=== PATIENT | male | born 1945 | race Caucasian/White ===

== ENCOUNTER 2016-12-15 09:17 | Day surgery (SDC) | payer MEDICARE ==
--- NOTE | ~2016-12-15 | EGD ---
EGD REPORT [facility] [address] [place]. [id number] NAME: SONNY CORTEZ : [birth year] STATUS : REG [facility]#: [id number] AGE: 71 ADM/REG DATE : 12/15/16 MR#: [id number] REPORT SERV DATE: 12/15/16 DICTATED BY: CINDY MOLINA DATE: 12/15/16 REPORT STATUS : Draft TRANSCRIBED BY: [facility] DATE: 12/15/16 Pulmonology Patient Name: Sonny Cortez Procedure Date: 12/15/2016 11:10 AM Date of : 1945 Attending MD: MAURILIO MOLINA MD Procedure Date No Time: 12/15/2016 Procedure: EBUS/NAVIGATION BRONCHOSCOPY Indications: RUL persistent infiltrate, mediastinal adenopathy, remote history of smoking (8 pack years), DVT/PEs. Ddx: Malignancy versus Inflammatory lung disease Providers: MAURILIO MOLINA MD Referring MD: ROSALIO ACUÑA MD Medicines: Lidocaine 2% 20 mL Complications: No immediate complications Procedure: Pre-Anesthesia Assessment: - ASA Grade Assessment: III - A patient with severe systemic disease. - A History and Physical has been performed. Patient meds and allergies have been reviewed. The risks and benefits of the procedure and the sedation options and risks were discussed with the patient. All questions were answered and informed consent was obtained. Patient identification and proposed procedure were verified prior to the procedure by the physician and the nurse in the procedure room. Mental Status Examination: alert and oriented. Airway Examination: normal oropharyngeal airway. Respiratory Examination: clear to auscultation. CV Examination: normal and RRR, no murmurs, no S3 or S4. ASA Grade Assessment: III - A patient with severe systemic disease. After reviewing the risks and benefits, the patient was deemed in satisfactory condition to undergo the procedure. The anesthesia plan was to use general anesthesia. Immediately prior to administration of medications, the patient was re-assessed for adequacy to receive sedatives. The heart rate, respiratory rate, oxygen saturations, blood pressure, adequacy of pulmonary ventilation, and response to care were monitored throughout the procedure. The physical status of the patient was re-assessed after the procedure. After obtaining informed consent, the Bronchoscope was introduced through the mouth, via the endotracheal tube (the patient was intubated for the procedure) and advanced to the tracheobronchial tree. the BF [id number] was introduced through the and advanced to the. EGD REPORT [address] [address] NAME: SONNY CORTEZ : [birth year] STATUS : REG [facility]#: [id number] AGE: 71 ADM/REG DATE : 12/15/16 MR#: [id number] REPORT SERV DATE: 12/15/16 DICTATED BY: CINDY MOLINA DATE: 12/15/16 REPORT STATUS : Draft TRANSCRIBED BY: [email or web address] DATE: 12/15/16 The procedure was accomplished without difficulty. The patient tolerated the procedure well. Findings: The endotracheal tube is in good position. The visualized portion of the trachea is of normal caliber. The skyler is sharp. The tracheobronchial tree was examined to at least the first subsegmental level. Bronchial mucosa and anatomy are normal; there are no endobronchial lesions, and no secretions. EBUS TBNA of lymph node level 11L x 4passes for cytology EBUS TBNA of lymph node level 7 x 4 passes for cytology EBUS TBNA of lymph node level 4R x 8 passes for cytology EBUS TBNA of lymph node level 11R x 8 passes for cytology Using SuperDimension Edge catheter 180, peripheral probe EBUS 17s, and fluoroscopy, I performed the following biopsies: RUL lung infiltrate transbronchial needle aspirates x 6 passes for cytology RUL lung infiltrate transbronchial brush biopsy x 1 pass for cytology RUL lung infiltrate transbronchial forcep biopsies x 4 passes for histopathology Bronchoalveolar lavage was performed in the right upper lobe of the lung and sent for routine cytology. 60 mL of fluid were instilled. 10 mL were returned. The return was blood-tinged. Impression: Rapid On-Site Evaluation ([place]): Preliminary cytology is POSITIVE for NON-SMALL CELL LUNG CANCER (final results are pending). Recommendation: - Await test results. - PET scan. - MRI of the brain with and without contrast - Consult Medical Oncology - Consult Radiation Oncology - Full PFTs (if not already performed) - Restart Eliquis 6 hours - Dr. Zepeda is aware of the preliminary results - Follow up with Dr. Zepeda in clinic as previously scheduled. - Lung Cancer Nurse Navigator, Sona Carlson Attending Participation: I personally performed the entire procedure. MAURILIO MOLINA MD 12/15/2016 12:40 PM This report has been signed electronically. Number of Addenda: 0 Note Initiated On: 12/15/2016 11:10 AM
[~2016-12-15 09:17] MED LIST: ELIQUIS 5 MG TAB5 MG PO; RED YEAS1 PO; ZYRTEC ALLGY10 MG PO
[2016-12-15 09:44] LABS: BASOPHILS 0.4 %; BASOPHILS ABSOLUTE 0.04 10/3/uL (0.0-0.16); EOSINOPHILS 5.9 %; EOSINOPHILS ABSOLUTE 0.61 10/3/uL (0.0-0.53); HEMATOCRIT 43.1 % (40.0-51.0); HEMOGLOBIN 14.1 g/dL (13.6-17.8); IMMATURE GRANULOCYTES 0.4 %; IMMATURE GRANULOCYTES ABSOLUTE 0.04 10/3/uL (0.0-0.11); LYMPHOCYTES 15.7 %; LYMPHOCYTES ABSOLUTE 1.62 10/3/uL (0.67-4.30); MEAN CORPUS HGB CONC 32.7 g/dL (32.0-36.0); MEAN CORPUSCULAR HEMOGLOB 27.5 pg (26.0-34.0); MEAN PLATELET VOLUME 10.6 fL (9.2-13.0); MONOCYTES 7.5 %; MONOCYTES ABSOLUTE 0.78 10/3/uL (0.21-1.20); NEUTROPHILS 70.1 %; NEUTROPHILS ABSOLUTE 7.26 10/3/uL (2.02-8.40); PLATELET COUNT 212 10/3/uL (150-400); RBC DISTRIBUTION WIDTH 14.7 % (12.0-16.0); RED CELL COUNT 5.12 10/6/uL (4.7-6.1); WHITE BLOOD CELLS 10.4 10/3/uL (4.5-10.5)
[2016-12-15 09:45] LABS: MANUAL DIFF NO %; MEAN CORPUSCULAR VOLUME 84.2 fL (80-100)
[2016-12-15 09:51] LABS: INTERNATIONAL NORMAL RATI 1.1 UNITS (-); PARTIAL THROMBO TIME 25.2 SEC (22.5-37.2); PROTIME (NOT ORD) 14.4 SEC (12.0-14.5)
[2016-12-15 14:25] LABS: BD FL SOURCE (NOT ORD) RUL BAL; BF TOTAL CELL CT (NOT ORD 90 /MM3; BODY FLUID RBC (NOT ORD) 5000 /MM3
[2016-12-15 14:35] LABS: BD FL LYMPH (NOT ORD) 8 %; BF BASO (NOT OF) 0 %; BF LARGE MONONUCLEAR 91 %; BODY FLUID EOS (NOT ORD) 1 %; BODY FLUID SEG (NOT ORD) 0 %
[2016-12-23] MEDS ORDERED: LIPITOR80 MG PO (17:00)
[2016-12-23] MEDS ORDERED: CYANO1000T PO (17:00)
[2016-12-23] MEDS ORDERED: MEVACOR10 MG (17:01)
[2016-12-23] MEDS ORDERED: PRIN5 PO (17:01)
[2016-12-23] MEDS ORDERED: LOP25 PO (17:02)
[2016-12-24] MEDS ORDERED: ENOXAPARIN 80 MG SC (11:47)
== END 2016-12-15 23:59 | disposition home or self-care (01) ==
LOC: DMU 09:17
PROVIDERS: Internal Medicine
PROC: 07B74ZX Excision of Thorax Lymphatic, Percutaneous Endoscopic Approach, Diagnostic (ICD-10-PCS; principal; 2016-12-15 11:00)
DX: C34.11 Malignant neoplasm of upper lobe, right bronchus or lung (principal); C77.1 Secondary and unspecified malignant neoplasm of intrathoracic lymph nodes; I82.409 Acute embolism and thrombosis of unspecified deep veins of unspecified lower extremity; N20.0 Calculus of kidney; Z88.0 Allergy status to penicillin; Z88.5 Allergy status to narcotic agent; Z88.6 Allergy status to analgesic agent; Z79.01 Long term (current) use of anticoagulants; Z79.899 Other long term (current) drug therapy; Z87.891 Personal history of nicotine dependence; Z86.711 Personal history of pulmonary embolism; Z98.890 Other specified postprocedural states
CPT/HCPCS: 71010; 81235; 85025; 85610; 85730; 87015; 87070; 87102; 87116; 87205; 88112; 88172; 88173; 88305; 88333; 88344; 88360; 89051; 93005; A9270-GY; C1725; C1769; J2250; J2370; J2405; J2710; J3010